=== PATIENT | female | born 1960 | race American Indian/Alaskan Native ===

== ENCOUNTER 2019-01-19 08:46 | Emergency (ER) | payer OTHER ==
[2019-01-19 09:02] VITALS: BP 198/70
[2019-01-19] MEDS ORDERED: NORCO 5/325 PO ONE (09:39)
--- NOTE | 2019-01-19 09:44 | Emergency Department Report ---
ED Lower Extremity HPI - General Chief Complaint: Extremity Injury, Lower Stated Complaint: RIGHT KNEE PAIN Time Seen by Provider: 01/19/19 09:27 Source: patient Mode of arrival: Wheelchair Limitations: No Limitations - History of Present Illness Initial Comments: This is a 58 year-old female who presents to the emergency room for right knee pain. Past medical history of diabetes 2, NH with 3 stents placed, hypertension, anxiety, seizures, coronary artery disease. Patient states she slipped and fell while at work yesterday also order. She reports pain and swelling to the anterior knee. Patient concerned of possible tear because she previously had surgery on meniscus couple years ago. Patient states his pain increased around 0130 this morning, constant, and nonradiating. Patient states she is unable to apply weight to RLE. Denies numbness or tingling, radiating pain, and weakness. MD Complaint: knee injury Onset/Timin -: days(s) Injury: Knee: Right Type of Injury: unknown Place: street/outdoors Severity: severe Severity scale (0 -10): 10 Improves With: nothing Worsens With: weight bearing, movement Context: fall Associated Symptoms: swelling, unable to bear weight. denies: snap/pop sensation, numbness, tingling Treatments Prior to Arrival: NSAIDS - Related Data Home Medications Medication Instructions Recorded Confirmed Last Taken Aspirin [Aspirin BABY CHEW TAB] 81 mg PO QDAY 01/12/15 06/16/17 06/16/17 Clopidogrel Bisulfate [Plavix] 75 mg PO QDAY 01/12/15 06/16/17 06/16/17 Olimpia oTrres [Henri Torres] 500 mg PO BID 01/12/15 06/16/17 06/16/17 Insulin Aspart [NovoLOG 100 14 units SUB-Q TID 01/12/15 06/16/17 06/16/17 UNITS/ML VIAL] Lisinopril [Zestril TAB] 20 mg PO QDAY 01/12/15 06/16/17 06/16/17 Nitroglycerin [Nitrostat] 0.4 mg SL Q5M 01/12/15 06/16/17 Unknown Topiramate [Topamax] 400 mg PO BID 01/12/15 06/16/17 06/16/17 levETIRAcetam [Keppra TAB] 1,500 mg PO BID 01/12/15 06/16/17 06/16/17 metFORMIN [Glucophage] 500 mg PO BID 01/12/15 06/16/17 06/16/17 Acetaminophen/Codeine [Tylenol 1 tab PO Q6H PRN 06/16/17 06/16/17 06/16/17 /Codeine # 3 tab] Calcium Carbonate/Vitamin D3 1 each PO BID 06/16/17 06/16/17 06/16/17 [[place] 500-Vit D3 200 Caplet] Detemir (Nf) [Levemir (Nf)] 29 units SUB-Q QHS 06/16/17 06/16/17 06/15/17 HYDROcodone/APAP 5-325 [[place] 1 each PO Q6HR PRN 06/16/17 06/16/17 06/16/17 5-325 mg TAB] Rosuvastatin Calcium [Crestor] 20 mg PO DAILY 06/16/17 06/16/17 06/16/17 Previous Rx's Medication Instructions Recorded Last Taken Type Carvedilol [Coreg] 25 mg PO BID 30 Days tablet 06/17/17 Unknown Rx Acetaminophen/Codeine [Tylenol 1 tab PO Q6H PRN #12 tab 01/19/19 Unknown Rx /Codeine # 3 tab] Menthol/Camphor [[place] 8 gm TP Q4H PRN #1 oint...g. 01/19/19 Unknown Rx Ointment] Allergies Allergy/AdvReac Type Severity Reaction Status Date / Time tramadol HCl [From Ultram] AdvReac Vomiting Verified 01/12/15 09:29 ED Review of Systems ROS: Stated complaint: RIGHT KNEE PAIN Other details as noted in HPI Constitutional: denies: chills, fever Respiratory: denies: cough, shortness of breath, wheezing Cardiovascular: denies: chest pain, palpitations Musculoskeletal: arthralgia (right knee pain). denies: back pain, joint swelling Skin: denies: rash, lesions Neurological: denies: headache, weakness, paresthesias Psychiatric: denies: anxiety, depression ED Past Medical Hx - Past Medical History Previous Medical History?: Yes Hx Hypertension: Yes Hx Heart Attack/AMI: Yes Hx Congestive Heart Failure: No Hx Diabetes: Yes (type 2) Hx Seizures: Yes Hx Psychiatric Treatment: Yes (anxiety) Hx Asthma: No Hx COPD: No Additional medical history: cad - Surgical History Past Surgical History?: Yes Hx Coronary Stent: Yes (2-stent) Hx Cholecystectomy: Yes Hx Appendectomy: Yes Additional Surgical History: x 3. hysterectomy. right knee surgery x 2 - Social History Smoking Status: Never Smoker Substance Use Type: None - Medications Home Medications: Home Medications Medication Instructions Recorded Confirmed Last Taken Type Aspirin [Aspirin BABY CHEW TAB] 81 mg PO QDAY 01/12/15 06/16/17 06/16/17 History Clopidogrel Bisulfate [Plavix] 75 mg PO QDAY 01/12/15 06/16/17 06/16/[address] [Depkathy Dr] 500 mg PO BID 01/12/15 06/16/17 06/16/17 History Insulin Aspart [NovoLOG 100 14 units SUB-Q TID 01/12/15 06/16/17 06/16/17 History UNITS/ML VIAL] Lisinopril [Zestril TAB] 20 mg PO QDAY 01/12/15 06/16/17 06/16/17 History Nitroglycerin [Nitrostat] 0.4 mg SL Q5M 01/12/15 06/16/17 Unknown History Topiramate [Topamax] 400 mg PO BID 01/12/15 06/16/17 06/16/17 History levETIRAcetam [Keppra TAB] 1,500 mg PO BID 01/12/15 06/16/17 06/16/17 History metFORMIN [Glucophage] 500 mg PO BID 01/12/15 06/16/17 06/16/17 History Acetaminophen/Codeine [Tylenol 1 tab PO Q6H PRN 06/16/17 06/16/17 06/16/17 History /Codeine # 3 tab] Calcium Carbonate/Vitamin D3 1 each PO BID 06/16/17 06/16/17 06/16/17 History [[place] 500-Vit D3 200 Caplet] Detemir (Nf) [Levemir (Nf)] 29 units SUB-Q QHS 06/16/17 06/16/17 06/15/17 History HYDROcodone/APAP 5-325 [[place] 1 each PO Q6HR PRN 06/16/17 06/16/17 06/16/17 History 5-325 mg TAB] Rosuvastatin Calcium [Crestor] 20 mg PO DAILY 06/16/17 06/16/17 06/16/17 History Carvedilol [Coreg] 25 mg PO BID 30 Days tablet 06/17/17 Unknown Rx Acetaminophen/Codeine [Tylenol 1 tab PO Q6H PRN #12 tab 01/19/19 Unknown Rx /Codeine # 3 tab] Menthol/Camphor [[place] 8 gm TP Q4H PRN #1 oint...g. 01/19/19 Unknown Rx Ointment] ED Physical Exam - General Limitations: No Limitations General appearance: alert, in no apparent distress, obese (morbidly) - Respiratory Respiratory exam: Present: normal lung sounds bilaterally. Absent: respiratory distress - Cardiovascular Cardiovascular Exam: Present: regular rate, normal rhythm. Absent: systolic murmur, diastolic murmur, rubs, gallop - Expanded Lower Extremity Exam Right Upper Leg exam: Present: normal inspection, full ROM Knee exam: Present: tenderness (swelling and tenderness lateral patella), swelling, crepidus, erythema, pain w/ pronation/supination. Absent: full ROM (decreased ROM 2/2 pain), abrasion, laceration, ecchymosis, deformity, effusion, full knee extension (unable to extend knee) Lower Leg exam: Present: swelling. Absent: full ROM, laceration, ecchymosis, dislocation, erythema, palpable cord, Dinora's sign Ankle exam: Present: swelling. Absent: tenderness, abrasion, laceration, ecchymosis, deformity, crepidus, dislocation, erythema, anterior draw sign Foot/Toe exam: Present: normal inspection, full ROM Neuro vascular tendon exam: Present: no vascular compromise Gait: Positive: not tested/not observed - Neurological Exam Neurological exam: Present: alert, oriented X3 - Psychiatric Psychiatric exam: Present: normal affect, normal mood - Skin Skin exam: Present: warm, dry, intact, normal color. Absent: rash ED Course Vital Signs 01/19/19 09:00 Temperature 98.2 F Pulse Rate 68 Respiratory 20 Rate Blood Pressure 198/70 O2 Sat by Pulse 100 Oximetry ED Lower Extremity MDM - Radiology Data Radiology results: report reviewed RIGHT KNEE, 3 views: History: Fall right knee pain. Moderate to severe tricompartmental osteoarthritic changes are identified. moderate joint effusion. No evidence for fracture or bone lesion. IMPRESSION: Osteoarthritis. Joint effusion. No acute injury is identified. - Medical Decision Making Patient was examined by me. Vitals are normal and patient is in no acute distress. Obtained a x-ray of right knee. Patient given [place] 5/325 mg by mouth once while in ER. Patient was unable to tolerate assessment of right knee secondary pain. An icepack was applied to right knee. X-rays dictated by radiologist and reported field by myself with findings of Osteoarthritis. Joint effusion. No acute injury is identified. The knee brace provided with crutches and education. Patient is shocked at 2 remain nonweightbearing to right lower extremity. Referral to orthopedic surgeon for follow-up. Starts Tylenol No. 3 for pain. Plan discussed with patient to discharge home and treat outpatient. She agrees with ER plan. Patient discharged home in stable condition. Follow up with PCP in 2-3 days. Critical care attestation.: If time is entered above; I have spent that time in minutes in the direct care of this critically ill patient, excluding procedure time. ED Disposition Clinical Impression: Pain of right patella, Knee effusion, right Fall Qualifiers: Encounter type: initial encounter Qualified Code(s): W19.XXXA - Unspecified fall, initial encounter Disposition: TO HOME OR SELFCARE Is pt being admited?: No Does the pt Need Aspirin: No Condition: Stable Instructions: Osteoarthritis (ED), Knee Effusion (ED), Arthralgia (ED) Additional Instructions: Rest Use ice or heat on affected area for 20 minutes and off for 2 hours. Take pain medication as needed for pain. Follow up with Primary Care Provider in 2-3 days. Prescriptions: Menthol/Camphor [[place] Ointment] 8 gm TP Q4H PRN #1 oint...g. PRN Reason: Pain , Severe (7-10) Acetaminophen/Codeine [Tylenol /Codeine # 3 tab] 1 tab PO Q6H PRN #12 tab PRN Reason: Pain , Severe (7-10) Referrals: JOSE CARLOS MURRAY NP [Primary Care Provider] - 3-5 Days DARLENE PHILLIPS MD [Staff Physician] - 3-5 Days [facility] [Provider Group] - 3-5 Days [facility] [Provider Group] - 3-5 Days Forms: Work/School Release Form(ED), Accompanied Note Time of Disposition: 10:14
--- NOTE | 2019-01-19 09:49 | XRay Report ---
RIGHT KNEE, 3 views: History: Fall right knee pain. Moderate to severe tricompartmental osteoarthritic changes are identified. moderate joint effusion. No evidence for fracture or bone lesion. IMPRESSION: Osteoarthritis. Joint effusion. No acute injury is identified.
== END 2019-01-19 10:38 | disposition home or self-care (01) ==
LOC: ED 08:46
DX: M25.461 Effusion, right knee (principal); M25.561 Pain in right knee; I10 Essential (primary) hypertension; I25.2 Old myocardial infarction; E11.9 Type 2 diabetes mellitus without complications; Z95.1 Presence of aortocoronary bypass graft; Z90.49 Acquired absence of other specified parts of digestive tract; Z90.710 Acquired absence of both cervix and uterus; Z98.890 Other specified postprocedural states; Z79.82 Long term (current) use of aspirin; Z79.4 Long term (current) use of insulin; Z79.899 Other long term (current) drug therapy; Z88.6 Allergy status to analgesic agent; W01.0XXA Fall on same level from slipping, tripping and stumbling without subsequent striking against object, initial encounter; Y93.89 Activity, other specified; Y92.89 Other specified places as the place of occurrence of the external cause; Y99.8 Other external cause status
CPT/HCPCS: 99284